=== PATIENT | female | born 1975 | race Caucasian/White ===

== ENCOUNTER 2018-09-09 08:54 | Emergency (ER) | payer BC ==
[~2018-09-09] VITALS: Ht 144.8 cm; Wt 58.5 kg
[2018-09-09 10:24] LABS: BASOPHILS % 1.5 % (0.0-2.0); EOSINOPHILS % 3.8 % (0.0-5.0); HEMATOCRIT. 32.6 % (36.0-48.0); HEMOGLOBIN. 10.4 g/dL (12.0-16.0); LYMPHOCYTES % 22.3 % (20.0-50.0); MEAN CORPUSCULAR HEMOGLOBIN 25.3 pg (28.0-32.0); MEAN CORPUSCULAR VOLUME 79.4 fL (81.0-99.0); MEAN PLATELET VOLUME 7.1 fl (7.4-10.4); NEUTROPHILS % 63.4 % (40.0-76.0); PLATELET 365 x1000/uL (130-400); RED CELL DISTRIBUTION WIDTH 15.9 % (11.6-14.6)
[2018-09-09 10:28] LABS: CHLORIDE 110 mEq/L (98-107)
[2018-09-09 10:39] LABS: B-HCG QUANTITATIVE < 1 mIU/mL (<3)
[2018-09-09] MEDS ORDERED: SODIUM CHLORIDE 0.9% 1,000 ML IV ONE (12:22)
[2018-09-09] MEDS ORDERED: IOHEXOL-350 100 ML BOTTLE ONE (12:25)
[2018-09-09 13:49] LABS: CLARITY URINE CLEAR (CLEAR); COLOR URINE YELLOW (YELLOW); KETONES URINE NEGATIVE (NEGATIVE); LEUKOCYTE ESTERASE URINE NEGATIVE (NEGATIVE); NITRITE URINE NEGATIVE (NEGATIVE); OCCULT BLOOD URINE 3+ (NEGATIVE); PROTEIN URINE NEGATIVE (NEGATIVE); SPECIFIC GRAVITY URINE 1.036 (1.005-1.030); UROBILINOGEN URINE 0.2 E.U./dL (0.2-1.0)
[2018-09-09 13:59] VITALS: BP 108/35
== END 2018-09-09 14:04 | disposition home or self-care (01) ==
LOC: ER 08:54
DX: R55 Syncope and collapse (principal); E78.00 Pure hypercholesterolemia, unspecified; Z90.49 Acquired absence of other specified parts of digestive tract
CPT/HCPCS: 36415; 70450; 71045; 71275; 80053; 81003; 83880; 84443; 84484; 84702; 85025; 85379; 86850; 86900; 86901; 93005; 96360; 96361; 99284; J7030; Q9967; Z7610; 76830; 76856